=== PATIENT | female | born 1990 | race Caucasian/White ===

== ENCOUNTER 2017-07-18 10:19 | Emergency (ER) | payer MEDICAID ==
[2017-07-18] MEDS ORDERED: LORazepam 0.5 MG Tab ONE (11:00)
[2017-07-18 15:24] VITALS: BP 136/84
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
== END 2017-07-18 11:13 | disposition home or self-care (01) ==
LOC: LB.ED 10:19
DX: F41.9 Anxiety disorder, unspecified (principal); F32.9 Major depressive disorder, single episode, unspecified; F90.9 Attention-deficit hyperactivity disorder, unspecified type; F17.210 Nicotine dependence, cigarettes, uncomplicated; Z79.899 Other long term (current) drug therapy; Z88.8 Allergy status to other drugs, medicaments and biological substances
CPT/HCPCS: 99283; A9270

== ENCOUNTER 2018-03-23 14:06 | Emergency (ER) | payer MEDICAID ==
[2018-03-23 14:17] VITALS: BP 128/86
[2018-03-23] MEDS ORDERED: Ketorolac 60 MG/2 ML SDV IM ONE (14:34)
[2018-03-23] MEDS: Ketorolac 30 MG/ML SDV ONE (14:37)
--- NOTE | 2018-03-23 14:40 | EDM.PDOC ---
ED HPI GENERAL MEDICAL PROBLEM - General Chief Complaint: General Stated Complaint: back pain Time Seen by Provider: 03/23/18 14:20 Source of Information: Reports: Patient History Limitations: Reports: No Limitations - History of Present Illness INITIAL COMMENTS - FREE TEXT/NARRATIVE: According to patient she has been having mid to lower back pain since yesterday. Claims that it came on gradually and got worse today. She rate her pain at 10/10. No fall or trauma to the back. No radiation of pain. no tinging or numbness. No incontinence of stool or urine. No saddle numbness.She has been using Tylenol and naprosyn every 4 hrs and also has been taking flexeril. According to patient she has been having pain in her back problem for several years and has seen Neurosurgeon Dr. Marina last years. Pt is not a candidate for surgery and tried physical therapy and it did not help. Onset Date: 03/22/18 Duration: Chronic Location: Reports: Back Quality: Reports: Ache Severity: Severe Improves with: Reports: None Worsens with: Reports: None Associated Symptoms: Denies: Confusion, Chest Pain, Cough, Diaphoresis, Fever/ Chills, Headaches, Malaise, Nausea/Vomiting, Rash, Seizure, Shortness of Breath , Syncope, Weakness Treatments TAMALE [employer]KER: Reports: Acetaminophen, NSAIDS - Related Data Allergies Allergy/AdvReac Type Severity Reaction Status Date / Time amitriptyline Allergy Itching Verified 03/23/18 14:16 tramadol Allergy Itching Verified 03/23/18 14:16 Home Meds: Home Meds Methylphenidate [Concerta] 54 mg PO DAILY 12/10/13 [History] Naproxen 500 mg PO BID 12/14/13 [History] Baclofen 20 mg PO TID 02/13/16 [History] ClonazePAM [KlonoPIN] 0.5 mg PO DAILY 02/13/16 [History] Gabapentin [Neurontin] 3 tab PO TID 02/13/16 [History] SUMAtriptan Succinate [Imitrex] 100 mg PO ASDIRECTED PRN 02/13/16 [History] Cetirizine [ZyrTEC] 10 mg PO DAILY PRN 11/28/16 [History] DULoxetine HCl [Cymbalta] 60 mg PO BID 11/28/16 [History] Norgestimate-Ethinyl Estradiol [Tri-Previfem Tablet] 1 tab PO DAILY 11/28/16 [ History] Cyclobenzaprine [Flexeril] 5 mg PO BEDTIME PRN 12/17/16 [History] Mirtazapine 30 mg PO QPM 07/18/17 [History] Past Medical History HEENT History: Reports: Other (See Below) Other HEENT History: Needs to have wisdom teeth out Cardiovascular History: Reports: Other (See Below) Other Cardiovascular History: Increased blood pressure due to pain Respiratory History: Reports: None Other Respiratory History: Mouth breather Gastrointestinal History: Reports: None Genitourinary History: Reports: Other (See Below) Other Genitourinary History: 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 Musculoskeletal History: Reports: Back Pain, Chronic, Neck Pain, Chronic, Other (See Below) Other Musculoskeletal History: knee and ankle pain Neurological History: Reports: Headaches, Chronic, Migraines Psychiatric History: Reports: ADHD, Anxiety, Depression Endocrine/Metabolic History: Reports: None Hematologic History: Reports: None Immunologic History: Reports: None Oncologic (Cancer) History: Reports: None Dermatologic History: Reports: None - Infectious Disease History Infectious Disease History: Reports: Other (See Below) Other Infectious Disease History: Recurring Strep Throat - Past Surgical History HEENT Surgical History: Reports: Oral Surgery GI Surgical History: Reports: None Endocrine Surgical History: Reports: None Musculoskeletal Surgical History: Reports: None Oncologic Surgical History: Reports: None Dermatological Surgical History: Reports: None ED ROS GENERAL - Review of Systems Review Of Systems: See Below Constitutional: Denies: Fever, Chills, Malaise, Weakness HEENT: Denies: Rhinitis, Throat Pain, Throat Swelling Respiratory: Denies: Cough, Sputum Cardiovascular: Denies: Chest Pain, Lightheadedness GI/Abdominal: Reports: Flatus. Denies: Abdominal Pain, Nausea, Vomiting : Denies: Discharge, Dysuria Musculoskeletal: Reports: Back Pain. Denies: Joint Pain, Joint Swelling Skin: Denies: Jaundice, Pruritis, Rash ED EXAM, GENERAL - Physical Exam Exam: See Below Exam Limited By: No Limitations General Appearance: Alert, WD/WN, Moderate Distress Eye Exam: Bilateral Eye: EOMI, PERRL Ears: Normal External Exam, Normal Canal, Hearing Grossly Normal, Normal TMs Ear Exam: Bilateral Ear: Auricle Normal, Canal Normal, TM normal Nose: Normal Inspection, Normal Mucosa, No Blood Throat/Mouth: Normal Inspection, Normal Lips, Normal Teeth, Normal Gums, Normal Oropharynx, Normal Voice, No Airway Compromise Head: Atraumatic, Normocephalic Neck: Normal Inspection, Supple, Non-Tender, Full Range of Motion Respiratory/Chest: No Respiratory Distress, Lungs Clear, Normal Breath Sounds, No Accessory Muscle Use, Chest Non-Tender Cardiovascular: Normal Peripheral Pulses, Regular Rate, Rhythm, No Edema, No Gallop, No JVD, No Murmur, No Rub Back Exam: Normal Inspection, Full Range of Motion, Muscle Spasm, Paraspinal Tenderness (thoracolumbar region). No: CVA Tenderness (R), CVA Tenderness (L), Vertebral Tenderness Neurological: Alert, Oriented, No Motor/Sensory Deficits Skin Exam: Warm, Intact Course - Vital Signs Text/Narrative:: Pt has not spinal tenderness. She does not ahve any neurological symptoms or signs. her tenderness is over the parpaspinal muscles of the upper lumbar region. Pt reassured that she has back muscle spasm. She did receive toradol 30mg IM . Advised to continue flexeril. Also intermittent heat to that back. Given script for toradol 10md 3 times dialy. 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 advised to followup in clinic and option of continuing PT versus epidural injection discussed. Last Recorded V/S: Last Vital Signs Temp 98.7 F 03/23/18 14:16 Pulse 100 03/23/18 14:16 Resp 12 03/23/18 14:16 BP 128/86 03/23/18 14:16 Pulse Ox 100 03/23/18 14:16 - Orders/Labs/Meds Orders: Active Orders 24 hr Category Date Time Status Ketorolac [Toradol] Med 03/23/18 14:34 Once 30 mg IM ONETIME ONE Departure - Departure Time of Disposition: 14:45 Disposition: Home, Self-Care 01 Condition: Fair Clinical Impression: Back muscle spasm - Discharge Information *PRESCRIPTION DRUG MONITORING PROGRAM REVIEWED*: Not Applicable *COPY OF PRESCRIPTION DRUG MONITORING REPORT IN PATIENT PETE: Not Applicable Instructions: Muscle Cramps and Spasms, Uaeb-[id number] Referrals: PCP,None [Primary Care Provider] - Additional Instructions: Pt has not spinal tenderness. She does not ahve any neurological symptoms or signs. her tenderness is over the parpaspinal muscles of the upper lumbar region. Pt reassured that she has back muscle spasm. She did receive toradol 30mg IM . Advised to continue flexeril. Also intermittent heat to that back. Given script for toradol 10md 3 times dialy. 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 advised to followup in clinic and option of continuing PT versus epidural injection discussed. - Problem List & Annotations (1) Back muscle spasm SNOMED Code(s): 938910311 Code(s): M62.830 - MUSCLE SPASM OF BACK Status: Acute Current Visit: Yes - Problem List Review Problem List Initiated/Reviewed/Updated: Yes - My Orders Last 24 Hours: My Active Orders 03/23/18 14:34 Ketorolac [Toradol] 30 mg IM ONETIME ONE - Assessment/Plan Last 24 Hours: My Active Orders 03/23/18 14:34 Ketorolac [Toradol] 30 mg IM ONETIME ONE Assessment:: Back muscles spasm Plan: Pt has not spinal tenderness. She does not ahve any neurological symptoms or signs. her tenderness is over the parpaspinal muscles of the upper lumbar region. Pt reassured that she has back muscle spasm. She did receive toradol 30mg IM . Advised to continue flexeril. Also intermittent heat to that back. Given script for toradol 10md 3 times dialy. 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 advised to followup in clinic and option of continuing PT versus epidural injection discussed.
== END 2018-03-23 14:45 | disposition home or self-care (01) ==
LOC: LB.ED 14:06
DX: M62.830 Muscle spasm of back (principal); Z88.8 Allergy status to other drugs, medicaments and biological substances; Z79.899 Other long term (current) drug therapy
CPT/HCPCS: 96372; 99283-25; J1885

== ENCOUNTER 2022-02-20 14:28 | Emergency (ER) | payer MEDICAID ==
[2022-02-20] MEDS ORDERED: Ketorolac 60 MG/2 ML SDV IM ONE (15:00)
[2022-02-20] MEDS ORDERED: Ketorolac 30 MG/ML SDV IM ONE (15:03)
[2022-02-20] MEDS ORDERED: Ketorolac 30 MG/ML SDV ONE (15:14)
[2022-02-20 16:00] VITALS: BP 113/79; PULSE 100
== END 2022-02-20 15:15 | disposition home or self-care (01) ==
LOC: LB.ED 14:28
DX: G89.29 Other chronic pain (principal); Z97.8 Presence of other specified devices; Z88.5 Allergy status to narcotic agent; Z88.8 Allergy status to other drugs, medicaments and biological substances
CPT/HCPCS: 96372; 99282; 99283; J1885

== ENCOUNTER 2022-06-16 18:01 | Emergency (ER) | payer MEDICAID ==
[2022-06-16 18:34] VITALS: BP 140/93; PULSE 88
[2022-06-16] MEDS ORDERED: HYDROmorphone 2 MG/ML SDV IM ONE (18:41)
[2022-06-16] MEDS: HYDROmorphone 2 MG/ML Syringe ONE ×2 (19:06→19:08)
[2022-06-16] MEDS ORDERED: Ketorolac 60 MG/2 ML SDV IM ONE (19:38)
[2022-06-16] MEDS ORDERED: Ketorolac 60 MG/2 ML SDV ONE (19:47)
[2022-06-16] MEDS ORDERED: Atropine 1% Ophth Soln 5 ML BOTTLE ONE (20:30)
[2022-06-16] MEDS ORDERED: Doxycycline 100 MG Cap ONE (20:30)
[2022-06-16] MEDS ORDERED: Acetaminophen/oxyCODONE 325-5 MG Tab ONE (20:30)
[2022-06-16] MEDS ORDERED: Ketorolac 10 MG Tab ONE (20:30)
== END 2022-06-16 21:00 | disposition home or self-care (01) ==
LOC: LB.ED 18:01
DX: Q38.5 Congenital malformations of palate, not elsewhere classified (principal); F19.10 Other psychoactive substance abuse, uncomplicated; Z88.5 Allergy status to narcotic agent; Z88.1 Allergy status to other antibiotic agents; Z79.899 Other long term (current) drug therapy
CPT/HCPCS: 96372; 99283; A9270; J1170; J1885

== ENCOUNTER 2022-08-22 14:21 | Emergency (ER) | payer OTHER, MEDICAID ==
[2022-08-22] MEDS: Lidocaine 1% with EPINEPHrine 1:100,000 50 ML MDV INFILT ONE (14:30)
[2022-08-22] MEDS: Bacitracin Oint 1 GM U/D Packet TOP ONE (15:25)
[2022-08-22] MEDS: Morphine 4 MG/ML VIAL IVPUSH ONE (15:27)
[2022-08-22] MEDS: Morphine 4 MG/ML VIAL ONE (15:36)
[2022-08-22] MEDS: HYDROmorphone 2 MG/ML Syringe IVPUSH ONE (16:27)
[2022-08-22] MEDS: HYDROmorphone 2 MG/ML Syringe ONE (16:31)
[2022-08-22 17:32] VITALS: BP 126/88; PULSE 90
== END 2022-08-22 16:40 | disposition home or self-care (01) ==
LOC: LB.ED 14:21
DX: S01.81XA Laceration without foreign body of other part of head, initial encounter (principal); Z88.8 Allergy status to other drugs, medicaments and biological substances; Z88.5 Allergy status to narcotic agent; V49.10XA Passenger injured in collision with unspecified motor vehicles in nontraffic accident, initial encounter; Y92.410 Unspecified street and highway as the place of occurrence of the external cause
CPT/HCPCS: 12013; 70450; 96374; 96375; 99284-25; J1170; J2270

== ENCOUNTER 2022-09-25 06:40 | Emergency (ER) | payer MEDICAID ==
[2022-09-25] MEDS: HYDROmorphone 2 MG/ML Syringe IM ONE (07:33)
[2022-09-25] MEDS: Ondansetron 4 MG Tab.DIS PO ONE (07:56)
[2022-09-25] MEDS: Ondansetron 4 MG Tab.DIS ONE (09:14)
[2022-09-25 09:28] VITALS: BP 124/75; PULSE 100
[2022-09-25] MEDS: methylPREDNISolone Sodium Succinate 125 MG/2 ML SDV IM ONE (09:56)
[2022-09-26] MEDS: methylPREDNISolone Sodium Succinate 125 MG/2 ML SDV ONE (09:29)
== END 2022-09-25 10:05 | disposition home or self-care (01) ==
LOC: LB.ED 06:40
DX: K52.9 Noninfective gastroenteritis and colitis, unspecified (principal); Z72.0 Tobacco use; Z88.8 Allergy status to other drugs, medicaments and biological substances; Z88.5 Allergy status to narcotic agent; Z79.899 Other long term (current) drug therapy
CPT/HCPCS: 36415; 74176; 80053; 85025; 96372; 99284; J1170; J2930; Q0162

== ENCOUNTER 2022-09-27 03:05 | Emergency (ER) | payer MEDICAID ==
[2022-09-27] MEDS: Ketorolac 60 MG/2 ML SDV IM ONE (03:25)
[2022-09-27] MEDS: Ketorolac 60 MG/2 ML SDV ONE (03:34)
[2022-09-27 03:57] VITALS: BP 119/85; PULSE 103
== END 2022-09-27 03:40 | disposition home or self-care (01) ==
LOC: LB.ED 03:05
DX: R10.12 Left upper quadrant pain (principal); Z88.5 Allergy status to narcotic agent; Z88.8 Allergy status to other drugs, medicaments and biological substances; Z72.0 Tobacco use
CPT/HCPCS: 96372; 99283; J1885

== ENCOUNTER 2022-10-02 19:37 | Emergency (ER) | payer MEDICAID ==
[2022-10-02] MEDS: Sodium Chloride 0.9% 1,000 ML IV SCH ×2 (19:53→22:54)
[2022-10-02] MEDS: Ondansetron 4 MG/2 ML SDV IVPUSH ONE (20:40)
[2022-10-02] MEDS: Ketorolac 60 MG/2 ML SDV IVPUSH ONE (20:42)
[2022-10-02] MEDS: metroNIDAZOLE/Normal Saline 500 MG in Premix Bag 1 BAG IV ONE (20:48)
[2022-10-02] MEDS: Ciprofloxacin in D5W 200 ML ONE (20:52)
[2022-10-02] MEDS: Ketorolac 30 MG/ML SDV ONE (20:55)
[2022-10-02] MEDS: Ondansetron 4 MG/2 ML SDV ONE (20:55)
[2022-10-02] MEDS: Morphine 4 MG/ML VIAL IVPUSH ONE (21:36)
[2022-10-02] MEDS: Prochlorperazine 10 MG/2 ML SDV IVPUSH ONE (21:42)
[2022-10-02] MEDS: Prochlorperazine 10 MG/2 ML SDV ONE (21:44)
[2022-10-02] MEDS ORDERED: Ondansetron 4 MG Tab.DIS ONE (21:47)
[2022-10-02] MEDS: Potassium Chloride 20 MEQ Tab.ER PO ONE (21:48)
[2022-10-02] MEDS: Morphine 4 MG/ML VIAL ONE (21:51)
[2022-10-02] MEDS: Ciprofloxacin in D5W 400 MG in Premix Bag 1 BAG IV ONE ×2 (21:53)
[2022-10-03 00:11] VITALS: BP 105/69; PULSE 72
== END 2022-10-03 | disposition home or self-care (01) ==
LOC: LB.ED 19:37
DX: K52.9 Noninfective gastroenteritis and colitis, unspecified (principal); E86.0 Dehydration; Z88.8 Allergy status to other drugs, medicaments and biological substances; Z88.5 Allergy status to narcotic agent; Z79.899 Other long term (current) drug therapy
CPT/HCPCS: 81001; 87086; 96361; 96365; 96367; 96375; 99284-25; A9270-GY; J0744; J0780; J1885; J2270; J2405; J3490; J7030; Q0162

== ENCOUNTER 2022-10-13 14:34 | Emergency (ER) | payer MEDICAID ==
[2022-10-13] MEDS ORDERED: Sodium Chloride 0.9% 1,000 ML IV ONE (16:51)
[2022-10-13] MEDS ORDERED: Ketorolac 30 MG/ML SDV IVPUSH ONE (17:24)
[2022-10-13] MEDS ORDERED: Ondansetron 4 MG/2 ML SDV IVPUSH ONE ×2 (17:24→21:07)
[2022-10-13 17:34] VITALS: BP 112/84; PULSE 110
[2022-10-13] MEDS ORDERED: Ketorolac 30 MG/ML SDV ONE (17:34)
[2022-10-13] MEDS ORDERED: Ondansetron 4 MG/2 ML SDV ONE ×2 (17:34→21:17)
[2022-10-13 18:03] LABS: ESTIMATED GFR 127 mL/min (>60)
[2022-10-13] MEDS ORDERED: Sodium Chloride 0.9% 1,000 ML IV SCH (18:30)
[2022-10-13] MEDS ORDERED: HYDROmorphone 2 MG/ML Syringe IVPUSH ONE (21:08)
[2022-10-13] MEDS ORDERED: HYDROmorphone 2 MG/ML Syringe ONE (21:23)
== END 2022-10-13 21:20 | disposition home or self-care (01) ==
LOC: LB.ED 14:34
DX: E86.0 Dehydration (principal); E46 Unspecified protein-calorie malnutrition; F17.210 Nicotine dependence, cigarettes, uncomplicated; Z88.8 Allergy status to other drugs, medicaments and biological substances; Z88.5 Allergy status to narcotic agent
CPT/HCPCS: 36415; 74176; 80053; 81003; 82150; 85025; 96361; 96374; 96375; 96376; 99284; J1170; J1885; J2405; J7030

== ENCOUNTER 2025-01-15 15:15 | Emergency (ER) | payer MEDICAID ==
[2025-01-15] MEDS ORDERED: Sodium Chloride 0.9% 10 ML Syringe FLUSH PRN (15:53)
[2025-01-15] MEDS: Ketorolac 15 MG/ML SDV IVPUSH ONE (16:06)
[2025-01-15] MEDS: Ondansetron 4 MG/2 ML SDV IVPUSH ONE (16:09)
[2025-01-15 16:10] LABS: BASOPHILS ABSOLUTE AUTO 0.01 K/uL (0.02-0.10); BASOPHILS PERCENT AUTO 0.2 % (0.0-0.5); EOSINOPHILS ABSOLUTE AUTO 0.00 K/uL (0.04-0.40); EOSINOPHILS PERCENT AUTO 0.0 % (1.0-5.0); LYMPHOCYTES ABSOLUTE AUTO 0.29 K/uL (1.50-4.00); LYMPHOCYTES PERCENT AUTO 5.0 % (20.0-40.0); MEAN PLATELET VOLUME 9.4 fL (6.0-10.0); MONOCYTES ABSOLUTE AUTO 0.21 K/uL (0.20-0.80); MONOCYTES PERCENT AUTO 3.7 % (3.0-10.0); NEUTROPHILS ABSOLUTE AUTO 5.24 K/uL (2.00-7.50); NEUTROPHILS PERCENT AUTO 91.1 % (45.0-70.0); PLATELET COUNT,PLT 170 K/uL (150-500); RED BLOOD CELL COUNT 4.47 M/uL (3.80-5.80); RED CELL DISTRIBUTION WIDTH 16.6 % (11.0-16.0); WHITE BLOOD CELL COUNT,WBC 5.8 K/uL (4.0-11.0)
[2025-01-15 16:23] LABS: BLOOD UREA NITROGEN,BUN 17 mg/dL (8-26); CARBON DIOXIDE,CO2 25.3 mmol/L (21.0-32.0); CHLORIDE,CL 96 mmol/L (98-107); CREATININE 0.56 mg/dL (0.55-1.02); ESTIMATED GFR 124 mL/min (>60); GLUCOSE RANDOM 151 mg/dL (74-100); POTASSIUM,K 3.2 mmol/L (3.5-5.1); SODIUM,NA 137 mmol/L (136-145)
[2025-01-15] MEDS: Sodium Chloride 0.9% 50 ML SDV FLUSH ONE (16:43)
[2025-01-15] MEDS: Iopamidol 612 MG/ML 100 ML Bottle IV SCH (16:43)
[2025-01-15] MEDS: NS + KCl 20mEq/L 1,000 ML IV SCH (17:20)
[2025-01-15 21:20] VITALS: BP 108/72; PULSE 141
== END 2025-01-15 20:00 ==
LOC: LB.ED 15:15
DX: K66.8 Other specified disorders of peritoneum (principal); R10.0 Acute abdomen; Z79.899 Other long term (current) drug therapy; Z88.5 Allergy status to narcotic agent; Z88.8 Allergy status to other drugs, medicaments and biological substances
CPT/HCPCS: 36415; 74177; 80048; 83605; 85025; 86140; 96361; 96365; 96366; 96368; 96375; 96376; 99285; 99285-25; A0425; A0428; J0780; J1171; J1885; J2405; J2543; J3480; J7030; Q9967

== ENCOUNTER 2025-05-05 13:53 | Emergency (ER) | payer MEDICAID ==
[2025-05-05 14:26] LABS: MEAN PLATELET VOLUME 8.4 fL (6.0-10.0); PLATELET COUNT,PLT 223.0 K/uL (150-500); RED BLOOD CELL COUNT 4.86 M/uL (3.80-5.80); RED CELL DISTRIBUTION WIDTH 21.3 % (11.0-16.0); WHITE BLOOD CELL COUNT,WBC 4.2 K/uL (4.0-11.0)
[2025-05-05 14:46] LABS: A/G RATIO 1.0 (0.8-2.0); ALANINE AMINOTRANSFERASE,ALT 132 U/L (12-78); ASPARTATE AMNIOTRANSFERASE,AST 245 U/L (15-37); BILIRUBIN TOTAL 0.9 mg/dL (0.0-1.0); BLOOD UREA NITROGEN,BUN 20 mg/dL (8-26); CARBON DIOXIDE,CO2 17.0 mmol/L (21.0-32.0); CHLORIDE,CL 98 mmol/L (98-107); CREATININE 0.54 mg/dL (0.55-1.02); EST CRCL DRUG DOSING (CG) 112.75 mL/min; ESTIMATED GFR 125 mL/min (>60); GLUCOSE RANDOM 85 mg/dL (74-100); PHOSPHORUS 1.5 mg/dL (2.5-4.9); POTASSIUM,K 4.1 mmol/L (3.5-5.1); PROTEIN TOTAL,TP 7.5 g/dL (6.4-8.2); SODIUM,NA 136 mmol/L (136-145)
[2025-05-05] MEDS: Ondansetron 4 MG/2 ML SDV IVPUSH ONE (14:47)
[2025-05-05 14:54] LABS: LACTIC ACID 2.8 mmol/L (0.4-2.0)
[2025-05-05] MEDS: Sodium Chloride 0.9% 10 ML Syringe FLUSH PRN (15:30)
[2025-05-05 15:34] LABS: APPEARANCE,URINE CLOUDY (CLEAR); GLUCOSE,URINE NEGATIVE (NEGATIVE); OCCULT BLOOD,URINE TRACE-LYSED (NEGATIVE)
[2025-05-05] MEDS: Sodium Chloride 0.9% 50 ML SDV FLUSH ONE (15:36)
[2025-05-05] MEDS: Iopamidol 612 MG/ML 100 ML Bottle IV SCH (15:36)
[2025-05-05 15:41] LABS: SQUAMOUS EPITHELIAL CELLS,UR MANY /HPF
[2025-05-05] MEDS ORDERED: Sodium Chloride 0.9% 10 ML Syringe FLUSH PRN ×2 (15:47→15:48)
[2025-05-05] MEDS: Magnesium Sulfat/D5W 1GM/100ML 1 GM in Premix Bag 1 BAG IV ONE (16:39)
[2025-05-05 18:11] VITALS: BP 107/67; PULSE 106
== END 2025-05-05 18:04 | disposition home or self-care (01) ==
LOC: LB.ED 13:53
DX: K27.9 Peptic ulcer, site unspecified, unspecified as acute or chronic, without hemorrhage or perforation (principal); E83.42 Hypomagnesemia; J45.909 Unspecified asthma, uncomplicated; Z88.5 Allergy status to narcotic agent; Z88.8 Allergy status to other drugs, medicaments and biological substances; Z79.899 Other long term (current) drug therapy
CPT/HCPCS: 36415; 74177; 80053; 81001; 83605; 83690; 83735; 84100; 85027; 86140; 96361; 96365; 96375; 96376; 99284-25; J2270; J2405; J2470; J3475; J7030; Q9967

== ENCOUNTER 2025-06-17 08:55 | Emergency (ER) | payer MEDICAID ==
[2025-06-17] MEDS: Sodium Chloride 0.9% 10 ML Syringe FLUSH PRN (09:13)
[2025-06-17] MEDS: Lactated Ringers 1,000 ML IV SCH (09:21)
[2025-06-17] MEDS: Ondansetron 4 MG/2 ML SDV IVPUSH ONE (09:24)
[2025-06-17 09:53] LABS: BASOPHILS ABSOLUTE AUTO 0.02 K/uL (0.02-0.10); BASOPHILS PERCENT AUTO 0.2 % (0.0-0.5); EOSINOPHILS ABSOLUTE AUTO 0.00 K/uL (0.04-0.40); EOSINOPHILS PERCENT AUTO 0.0 % (1.0-5.0); LYMPHOCYTES ABSOLUTE AUTO 0.99 K/uL (1.50-4.00); LYMPHOCYTES PERCENT AUTO 9.2 % (20.0-40.0); MEAN PLATELET VOLUME 9.7 fL (6.0-10.0); MONOCYTES ABSOLUTE AUTO 0.95 K/uL (0.20-0.80); MONOCYTES PERCENT AUTO 8.9 % (3.0-10.0); NEUTROPHILS ABSOLUTE AUTO 8.77 K/uL (2.00-7.50); NEUTROPHILS PERCENT AUTO 81.7 % (45.0-70.0); PLATELET COUNT,PLT 266 K/uL (150-500); RED BLOOD CELL COUNT 3.93 M/uL (3.80-5.80); RED CELL DISTRIBUTION WIDTH 16.7 % (11.0-16.0); WHITE BLOOD CELL COUNT,WBC 10.7 K/uL (4.0-11.0)
[2025-06-17] MEDS: Prochlorperazine 10 MG/2 ML SDV IVPUSH ONE ×2 (10:05→14:02)
[2025-06-17 10:15] LABS: A/G RATIO 0.8 (0.8-2.0); ALANINE AMINOTRANSFERASE,ALT 17.0 U/L (12-78); ASPARTATE AMNIOTRANSFERASE,AST 55.0 U/L (15-37); BILIRUBIN TOTAL 2.8 mg/dL (0.0-1.0); BLOOD UREA NITROGEN,BUN 13.0 mg/dL (8-26); CARBON DIOXIDE,CO2 26.9 mmol/L (21.0-32.0); CREATININE 0.37 mg/dL (0.55-1.02); EST CRCL DRUG DOSING (CG) 161.63 mL/min; ESTIMATED GFR 136.0 mL/min (>60); GLUCOSE RANDOM 106.0 mg/dL (74-100); POTASSIUM,K 3.1 mmol/L (3.5-5.1); PROTEIN TOTAL,TP 7.7 g/dL (6.4-8.2); SODIUM,NA 133.0 mmol/L (136-145)
[2025-06-17 10:19] LABS: LACTIC ACID 2.2 mmol/L (0.4-2.0)
[2025-06-17 10:22] LABS: CHLORIDE,CL 88.0 mmol/L (98-107)
[2025-06-17] MEDS: fentaNYL 100 MCG/2 ML SDV IVPUSH ONE ×2 (11:04→14:03)
[2025-06-17 13:45] VITALS: BP 109/67; PULSE 115
[2025-06-17] MEDS: Sodium Chloride 0.9% 50 ML SDV FLUSH ONE (13:57)
[2025-06-17] MEDS: Iopamidol 612 MG/ML 100 ML Bottle IV SCH (13:57)
[2025-06-17] MEDS ORDERED: Amoxicillin/Clavulanate K 875-125 MG Tab ONE (16:00)
[2025-06-17 16:30] LABS: BLOOD UREA NITROGEN,BUN 8.0 mg/dL (8-26); CARBON DIOXIDE,CO2 24.3 mmol/L (21.0-32.0); CHLORIDE,CL 96.0 mmol/L (98-107); CREATININE 0.26 mg/dL (0.55-1.02); EST CRCL DRUG DOSING (CG) 230.02 mL/min; ESTIMATED GFR 149.0 mL/min (>60); GLUCOSE RANDOM 84.0 mg/dL (74-100); POTASSIUM,K 3.3 mmol/L (3.5-5.1); SODIUM,NA 137.0 mmol/L (136-145)
== END 2025-06-17 16:22 | disposition home or self-care (01) ==
LOC: LB.ED 08:55
DX: E86.0 Dehydration (principal); E87.6 Hypokalemia; J18.9 Pneumonia, unspecified organism; Z79.899 Other long term (current) drug therapy; Z88.5 Allergy status to narcotic agent; Z88.8 Allergy status to other drugs, medicaments and biological substances
CPT/HCPCS: 36415; 71250; 74177; 80048; 80053; 83605; 83690; 85025; 87428-QW; 96361; 96365; 96366; 96375; 96376; 99284-25; A9270-GY; J0780; J2405; J3010; J3480; J7030; J7120; Q9967